=== PATIENT | male | born 1970 | race Asian ===

== ENCOUNTER 2016-06-15 18:36 | Emergency (ER) | payer MEDICAID ==
[~2016-06-15] VITALS: Ht 170.2 cm; Wt 74.8 kg
[2016-06-15 19:12] VITALS: BP_SYST 126
[2016-06-15] MEDS ORDERED: DIPH-TET-PERTUS Vaccine 0.5 ML VIAL (ADACEL) IM ONE (21:30)
[2016-06-15 22:10] VITALS: BP_SYST 122
== END 2016-06-15 22:10 | disposition home or self-care (01) ==
LOC: SED 18:36
DX: S00.571A Other superficial bite of lip, initial encounter (principal); S00.271A Other superficial bite of right eyelid and periocular area, initial encounter; W54.0XXA Bitten by dog, initial encounter; Y93.89 Activity, other specified; Y99.8 Other external cause status; Y92.89 Other specified places as the place of occurrence of the external cause
CPT/HCPCS: 90715; 99283